=== PATIENT | female | born 1945 | race Caucasian/White ===

== ENCOUNTER 2019-01-05 05:21 | Inpatient (IN) | payer MEDICARE ==
[~2019-01-05] VITALS: Ht 172.7 cm; Wt 86.2 kg
--- NOTE | ~2019-01-05 | CON ---
[address] [address] CONSULTATION Name: DANIELE STEVENS Room: [address] IN [facility]#: [id number] Admission: 01/05/19 Attend Phys: Marysol Larios MD Discharge: Date of : 47 Report #: [id number] THIS REPORT FOR: //name// CC: Anabella Larios DATE OF SERVICE: 01/06/2019 REASON FOR CONSULT: Anorexia epigastric pain and diarrhea, which has been going on since 12/06. HISTORY: This is a 73-year-old female who has lost her back in August of 2018 and currently lives alone. She reports that she was doing well until 12/06 when her GI symptoms started. She complains of inability to eat, epigastric pain, and diarrhea. She denies any hematochezia or melena. She reports that the last time when she scoped was back in 2004. PAST MEDICAL HISTORY: Significant for history of diarrhea for the past 1 month. She also has hyperlipidemia, gastroesophageal reflux disease, chronic pain requiring pain medication, depression, hypertension, history of back surgery, tonsillectomy, hemorrhoidectomy; fibromyalgia asthma; gallbladder disease, status post cholecystectomy back in 2004; ORIF of left foot; knee arthroplasty; history of ruptured abdominal aortic aneurysm. ALLERGIES: No known drug allergy. MEDICATIONS: Please refer to MAR. SOCIAL HISTORY: The patient denies tobacco or alcohol use. She lives alone as her passed in August of 2018. FAMILY HISTORY: Noncontributory. PHYSICAL EXAMINATION: VITAL SIGNS: Reveals normal vitals. LUNGS: Clear. CARDIOVASCULAR: Regular. ABDOMEN: Soft, tender to palpation in the epigastric region. Bowel sounds are positive. NEUROLOGIC: The patient is alert, oriented x 3. LABORATORY DATA: Reveal sodium of 139, potassium is 3.2,. BUN is 10, creatinine 0.7. Liver function tests are all within normal limit. Lipase is 69, albumin 3.6, total protein is 7.3. WBC is 6.5 with hemoglobin of 13.5 and platelet of 264. [place] [address] CONSULTATION Name: DANIELE STEVENS Room: [address] IN [facility]#: [id number] Admission: 01/05/19 Attend Phys: Marysol Larios MD Discharge: Date of : 47 Report #: [id number] IMAGING: There is no finding suggestive of any GI issues per CT. The patient has a small kidney stone. ASSESSMENT AND PLAN: We will consider endoscopic evaluation to evaluate her anorexia, epigastric pain and persistent diarrhea. We will make further recommendation based on endoscopic finding. By: [id number] Hughes MD /jude
--- NOTE | ~2019-01-05 | PROC ---
[address] [address] PROCEDURE REPORT Name: DANIELE STEVENS Room: [address] IN .R.#: [id number] Admission: 01/05/19 Attend Phys: Marysol Larios MD Discharge: Date of : 47 Report #: [id number] THIS REPORT FOR: //name// For GI report, please see the Provation report in Perceptive 7 content. By: [id number] Records Staff CAYDEN /YULIANA
[~2019-01-05 05:21] MED LIST: AMBIEN 10 MG TA10 MG PO; ASPIRIN325 PO; CARVEDILOL25 MG PO; CELEBREX 200 M200 MG PO; COLACE100 MG PO; DETROL LA4 MG PO; LYRICA 75 MG CA75 MG PO; MAVIK4 MG PO; METAMUCIL PAC1 UDPKT PO; MIRALAX17 GM PO; MOBIC15 MG PO; NORCO 5-325 TA1 EACH PO; NORFLEX100 MG PO; OXYCODONE HCL 55 MG PO; PAXIL40 MG PO; PERCOCET 7.5-31 EACH PO; PROTONIX40 M1 PO; PROTONIX40 M2 PO; SINGULAIR 10 MG10 M1 PO; TYLENOL325 MG PO; XARELTO10 MG PO; ZOCOR40 MG PO; ZYRTEC 10 MG TA10 MG PO; ZYRTEC10 M2 PO
[2019-01-05 05:27] VITALS: BP 150/95
[2019-01-05] MEDS ORDERED: MOBIC15 MG PO (05:35)
[2019-01-05] MEDS ORDERED: WELLBUTRIN XL300 MG PO (05:35)
[2019-01-05] MEDS ORDERED: LYRICA 75 MG CA75 MG PO (05:35)
[2019-01-05 06:00] LABS: ABSOLUTE BASOPHILS 0.1 thou/uL (0.0-0.2); ABSOLUTE EOSINOPHILS 0.1 thou/uL (0.0-0.7); ABSOLUTE LYMPHOCYTES 1.9 thou/uL (0.8-5.3); ABSOLUTE MONOCYTES 0.6 thou/uL (0.0-1.2); ABSOLUTE NEUTROPHILS 3.9 thou/uL (1.6-8.1); BASOPHILS 0.8 %; EOSINOPHILS 1.8 %; HEMATOCRIT 39.4 % (37.0-47.0); HEMOGLOBIN 13.5 gm/dL (12.0-15.0); MCH 30.7 pg (26.0-34.0); MCHC 34.2 g/dL (28.0-37.0); MCV 89.8 fL (80.0-100.0); MONOCYTES 8.6 %; MPV 8.4 fl. (7.2-11.1); NUCLEATED RBCS 0 /100WBC; PLATELET COUNT* 264 thou/uL (150-400); POLYS 59.8 %; RBC 4.38 mil/uL (4.20-5.00); WBC 6.5 thou/uL (4.0-11.0)
[2019-01-05 06:09] LABS: ANION GAP 12 mmol/L (7-16); BUN 10 mg/dL (7-18); CALCIUM 8.7 mg/dL (8.5-10.1); CHLORIDE 104 mmol/L (98-107); CO2 23 mmol/L (21-32); CREATININE 0.7 mg/dL (0.6-1.3); GLUCOSE 121 mg/dL (70-99); POTASSIUM 3.2 mmol/L (3.5-5.1); SODIUM 139 mmol/L (136-145)
[2019-01-05 06:20] LABS: ALBUMIN 3.6 g/dL (3.4-5.0); ALKALINE PHOSPHATASE 71 U/L (46-116); LIPASE 69 U/L (73-393); SGOT 26 U/L (15-37); SGPT 32 U/L (30-65); TOTAL BILIRUBIN 0.9 mg/dL (<0.1-1.0); TOTAL PROTEIN 7.3 g/dL (6.4-8.2); TROPONIN-I LEVEL <0.06 ng/mL (<0.06)
[2019-01-05 08:55] LABS: URINE BILIRUBIN NEGATIVE (Negative); URINE BLOOD NEGATIVE (Negative); URINE CLARITY CLEAR; URINE COLOR STRAW; URINE GLUCOSE-RANDOM NEGATIVE (Negative); URINE KETONES NEGATIVE (Negative); URINE LEUKOCYTES-REFLEX NEGATIVE (Negative); URINE NITRITE-REFLEX NEGATIVE (Negative); URINE PROTEIN NEGATIVE (Negative); URINE SPECIFIC GRAVITY <= 1.005 (1.005-1.030); URINE UROBILINOGEN 0.2 E.U./dl (0.2-1.0)
[2019-01-05 10:35] VITALS: BP 165/78
--- NOTE | 2019-01-05 10:43 | EKG ---
[place] [address] ELECTROCARDIOGRAM REPORT Name: DANIELE STEVENS Room: [address] ADM IN .R.#: [id number] Admission: 01/05/19 Attend Phys: Marysol Larios MD Discharge: Date of : 47 Report #: [id number] THIS REPORT FOR: //name// [facility] ED Test Date: 2019-01-05 Test Time: 05:41:06 Pat Name: DANIELE STEVENS Department: Room: [facility] Gender: F Supervisor [employer]: [place] : 1945 Requested By: Michele Sexton Order Number: [id number] MD: Damon Oseguera Measurements Intervals [place] Rate: 67 P: 24 MA: 146 QRS: -32 QRSD: 100 T: -8 QT: 400 QTc: 423 Interpretive Statements Sinus rhythm Abnormal R-wave progression, late transition Left ventricular hypertrophy Borderline T abnormalities, diffuse leads Compared to ECG 02/12/2014 08:48:40 Left ventricular hypertrophy now present T-wave abnormality still present Electronically Signed On 01-05-2019 10:43:24 CDT by Damon Oseguera [email or web address] <ELECTRONICALLY SIGNED> By: Damon Oseguera MD, [facility] 01/05/19 1043 [id number] [id number] Damon Oseguera MD, [facility] /EPI
[2019-01-05 11:24] VITALS: BP 183/80
--- NOTE | 2019-01-05 18:35 | NUR ---
PT A&Ox4. VITALS STABLE. MINIMAL PAIN, DENIED PAIN MEDS. DENIED NAUSEA. TOLERATING CLEAR LIQUIDS. WATERY STOOL. STOOL SAMPLE NEEDED FOR PENDING CDIFF. UP AD JIM. IV PATENT. CALL LIGHT WITHIN REACH. WILL CONTINUE TO MONITOR.
[2019-01-05 20:15] VITALS: BP 168/65
[2019-01-06] VITALS: BP 153/75
[2019-01-06 04:10] LABS: HEMOGLOBIN 12.4 gm/dL (12.0-15.0); MCH 30.5 pg (26.0-34.0); MCHC 33.5 g/dL (28.0-37.0); MCV 91.2 fL (80.0-100.0); MPV 8.5 fl. (7.2-11.1); RBC 4.06 mil/uL (4.20-5.00); RDW-CV 14.6 % (10.5-14.5); WBC 6.3 thou/uL (4.0-11.0)
[2019-01-06 04:28] LABS: ALBUMIN 3.2 g/dL (3.4-5.0); CALCIUM 8.6 mg/dL (8.5-10.1); CREATININE 0.5 mg/dL (0.6-1.3); MAGNESIUM 2.1 mg/dL (1.8-2.4); POTASSIUM 3.6 mmol/L (3.5-5.1); TOTAL BILIRUBIN 0.6 mg/dL (<0.1-1.0); TOTAL PROTEIN 6.7 g/dL (6.4-8.2)
--- NOTE | 2019-01-06 05:23 | NUR ---
PT SLEPT MOST OF SHIFT. ASSESSMENT DOCUMENTED. MEDS GIVEN PER E-MAR. IV PATENT. PT REFUSING IV FLUIDS THIS SHIFT STATING THAT SHE IS DRINKING PLENTY. STOOL SAMPLE SENT TO LAB. NO REPORTS OF PAIN OR NAUSEA THIS SHIFT. WILL CONTINUE WITH PLAN OF CARE.
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
[2019-01-06 08:15] VITALS: BP 160/70
--- NOTE | 2019-01-06 18:35 | NUR ---
PATIENT ALERT AND ORIENTED X 4. VITAL SIGNS STABLE ON ROOM AIR. UP INDEPENDENTLY IN ROOM. IV PATENT AND SALINE LOCKED. PATIENT REFUSING SCHEDULED IV FLUIDS. PAIN BEING MANAGED WITH IV MEDICATION. DENIES NAUSEA. TOLERATING CLEAR LIQUID DIET. HOURLY ROUNDS MAINTAINED THROUGHOUT THE SHIFT. CALL LIGHT WITHIN REACH. NURSING WILL CONTINUE TO MONITOR.
[2019-01-06 18:46] VITALS: BP 166/66
[2019-01-06 22:00] VITALS: BP 160/95
--- NOTE | 2019-01-07 06:01 | NUR ---
PATIENT WAS ABLE TO SLEEP THROUGH SHIFT. SHE DID RECIEVE IV ABX AND ASKED FOR A PAIN PILL. SHE IS STILL HAVING DIARRHEA AND SOME ANXIETY.
[2019-01-07 08:30] VITALS: BP 199/78
--- NOTE | 2019-01-07 12:52 | NUR ---
SPOKE WITH DR MARQUEZ, MADE HIM AWARE OF PATIENT TESTING POSTIIVE FOR CDIFF. DR MARQUEZ OK WITH CANCELLING COLONOSCOPY AT THIS TIME AND ONLY DOING EGD TOMORROW. CAN ADVANCE TO REGULAR DIET FOR TODAY AND NPO AT MIDNIGHT FOR EGD TOMORROW MORNING.
[2019-01-07 16:33] VITALS: BP 196/77
--- NOTE | 2019-01-07 18:08 | NUR ---
REPORT GIVEN TO DAVE CALDERA. ALL QUESTIONS ANSWERED. PATIENT PACKED UP AND WILL BE TAKEN TO ROOM 222 BY WHEELCHAIR WITH NURSING STAFF. DAUGHTER NOTIFIED.
--- NOTE | 2019-01-07 18:48 | NUR ---
PT TRANSFERRED TO ROOM 222 VIA WHEELCHAIR. PT UP AD JIM, NOT MONITORED ON TELEMETRY. PT MASON PAIN, N/V/D AT THIS TIME. PT DENIES ANY FURTHER NEEDS,. CLWR
[2019-01-07 20:00] VITALS: BP 142/76
[2019-01-08 04:00] VITALS: BP 174/81
--- NOTE | 2019-01-08 04:07 | NUR ---
PT ALERT ORIENTED. UP AD JIM IN ROOM. IN CDIF ISOLATION. NPO SINCE MN FOR EGD. MED SURG STATUS. DENIES PAIN.
[2019-01-08 08:00] VITALS: BP 184/80
[2019-01-08 09:56] VITALS: BP 184/80
--- NOTE | 2019-01-08 10:09 | NUR ---
ASSUMED CARE OF PATIENT THIS AM AT 0730. PATIENT IS ALERT, ORIENTED, ANXIOUS ABOUT SCHEDULED EGD. PROCEDURE EXPLAINED AND CONSENT SIGNED. PATIENT'S BP WAS ELEVATED THIS AM. BP MEDICATIONS GIVEN WITH A SIP OF H2O. PATIENT DENIES PAIN THIS AM. PATIENT TAKEN TO PACU PER W/C FOR PROCEDURE.
--- NOTE | 2019-01-08 10:16 | NUR ---
cm completed initial assessment. edu pt on role of cm and discussed d/c plan. pt a&O. pt lives alone, says she lost spouse this past August. pt independent w/adls. her dtr, andrew, stays with if/when needed. andrew present at time of assessment. pt denies hx w/snf or hh. pt has "everythings" re: DME d/t "twelve surgeries" and parkinson diagnoses. cm to remain available to assist as needed.
[2019-01-08 15:18] VITALS: BP 146/62
[2019-01-08 20:10] VITALS: BP 159/68
--- NOTE | 2019-01-09 06:42 | NUR ---
PATIENT SLEPT MOST OF THE NIGHT. PATIENT HAD NO COMPLAINTS OF PAIN. PATIENT IS HOPING TO GO HOME TODAY. WILL CONTINUE TO MONITOR.
[2019-01-09 07:22] VITALS: BP 183/89
[2019-01-09] MEDS ORDERED: ACCUPRIL40 MG PO (10:42)
[2019-01-09] MEDS ORDERED: NYAMYC15 GM TOP (10:42)
[2019-01-09] MEDS ORDERED: PANCRELIPASE PO (10:42)
[2019-01-09] MEDS ORDERED: PANTOPRAZOLE SO40 M1 PO (10:42)
[2019-01-09] MEDS ORDERED: FIRVANQ50 MG/1 ML PO (10:42)
[2019-01-09 11:53] VITALS: BP 183/89
[2019-01-09 12:19] VITALS: BP 183/89
--- NOTE | 2019-01-09 13:15 | NUR ---
CM CALLED IN PRESCRIPTION FOR FIRVANQ, WRITTEN, TO [facility] [address] [id number] THEY ARE THE ONLY [facility] THAT CARRY LIQUID VANC-FIRVANQ. PRESCRIPTION REQUIRED PRIOR AUTH PER PHARMACY. CALLED [facility] AT NUMBER GIVEN BY PHARMACY. SPOKE WITH TRADING FLOOR OPERATOR. SHE INITIATED AUTH BUT THEN INSTRUCTED CM TO GO ON LINE TO COVER MY MEDS.[employer] AND ENTER [id number]. PRIOR AUTH OBTAINED. SPOKE AGAIN WITH OFFICE SECRETARY. COPAY IS $34.54. INFORMED PT. TOLD HER THE LIQUID VANCOMYCIN HAD TO BE CALLED INTO [facility] HERE IN [place] [address]. SHE WAS OK WITH THIS. SHE KNOWS WHERE PHARMACY IS. SHE DROVE HERSELF TO HOSPITAL. SHE FEELS UP TO DRIVING TODAY. INFORMED VERENICE MONTAÑO THAT MED WAS SET UP.
--- NOTE | 2019-01-09 13:53 | NUR ---
ASSESSMENT COMPLETE. PT ALERT AND ORIENTED X4. PT DC HOME. INSTRUCTIONS AND PRESCRIPTIONS GIVEN. PT VERBALIZES UNDERSTANDING. ALL BELONGINGS SENT WITH PATIENT. SEE ASSESSMENT AND VITALS FOR OTHER DETAILS.
[2019-01-09 14:28] VITALS: BP 183/89
== END 2019-01-09 14:20 | disposition home or self-care (01) | DRG 372 ==
LOC: M.ERS 05:21 → M.TBA-ER 09:59 → M.2W 09:59 → M.ORTHSURG 10:38 → M.2W 01-07 18:25 → M.3W 01-08 19:53
PROVIDERS: Emergency Medicine Emergency Medical Services; ADMIT Internal Medicine
PROC: 0D738ZZ Dilation of Lower Esophagus, Via Natural or Artificial Opening Endoscopic (ICD-10-PCS; principal; 2019-01-08)
DX: A04.72 Enterocolitis due to Clostridium difficile, not specified as recurrent (principal); E44.1 Mild protein-calorie malnutrition; K22.2 Esophageal obstruction; I10 Essential (primary) hypertension; M79.7 Fibromyalgia; G62.9 Polyneuropathy, unspecified; J45.909 Unspecified asthma, uncomplicated; M19.90 Unspecified osteoarthritis, unspecified site; E03.9 Hypothyroidism, unspecified; G89.29 Other chronic pain; F32.9 Major depressive disorder, single episode, unspecified; Z96.659 Presence of unspecified artificial knee joint; K21.0 Gastro-esophageal reflux disease with esophagitis; K44.9 Diaphragmatic hernia without obstruction or gangrene; Z79.899 Other long term (current) drug therapy; Z90.49 Acquired absence of other specified parts of digestive tract; Z68.28 Body mass index [BMI] 28.0-28.9, adult; Z90.710 Acquired absence of both cervix and uterus

== ENCOUNTER 2020-05-27 11:17 | Emergency (ER) | payer MEDICARE ==
[~2020-05-27] VITALS: Ht 165.1 cm; Wt 88.5 kg
[~2020-05-27 11:17] MED LIST changes: +ACCUPRIL40 MG PO; +FIRVANQ50 MG/1 ML PO; +NYAMYC15 GM TOP; +PANCRELIPASE PO; +PANTOPRAZOLE SO40 M1 PO; +WELLBUTRIN XL300 MG PO
[2020-05-27] MEDS ORDERED: SIMVASTATIN40 MG PO (11:28)
[2020-05-27] MEDS ORDERED: OMEPRAZOLE20 M2 PO (11:28)
[2020-05-27] MEDS ORDERED: LYRICA 75 MG CA75 MG PO (11:28)
[2020-05-27] MEDS ORDERED: OXYBUTYNIN CHLO10 MG PO (11:29)
[2020-05-27] MEDS ORDERED: AMLODIPINE BESY10 MG PO (11:29)
[2020-05-27] MEDS ORDERED: PERCOCET 5-3251 EACH PO (13:56)
[2020-05-27 14:21] VITALS: BP 177/93
== END 2020-05-27 14:22 | disposition home or self-care (01) ==
LOC: M.ERS 11:17
DX: M25.552 Pain in left hip (principal); G89.29 Other chronic pain; M54.5 Low back pain; I10 Essential (primary) hypertension; M79.7 Fibromyalgia; G62.9 Polyneuropathy, unspecified; J45.909 Unspecified asthma, uncomplicated; M19.90 Unspecified osteoarthritis, unspecified site; Z79.899 Other long term (current) drug therapy; Z90.710 Acquired absence of both cervix and uterus